=== PATIENT | female | born 1995 | race Caucasian/White ===

== ENCOUNTER 2025-03-28 09:17 | Inpatient (IN) | payer MEDICAID, SELFPAY ==
[2025-03-25 13:45] LABS: Hematocrit 37.5 % (34.9-44.5); Hemoglobin 12.5 g/dL (12.0-15.5); Platelet Count 151 10x3/uL (150-450)
[2025-03-25 14:21] LABS: Syphilis Antibody Index 0.04 S/CO (<1.00 Non-Reactive)
[2025-03-25 14:22] LABS: Hep B Surf Ag Non-Reactive S/CO (NonReactive)
[2025-03-28 10:13] VITALS: BMI 35.5
[2025-03-28] MEDS ORDERED: Tranexamic Acid 1,000 MG/10 ML VIAL IVP PRN (10:13)
[2025-03-28] MEDS ORDERED: Ondansetron PF 4 MG/2 ML Vial IVP PRN ×2 (10:13→10:16)
[2025-03-28] MEDS ORDERED: Methylergonovine 0.2 MG/ML VIAL IM PRN (10:13)
[2025-03-28] MEDS ORDERED: Carboprost 250 MCG/ML AMP IM PRN (10:13)
[2025-03-28] MEDS ORDERED: Bicitra 30 ML UDCUP PO PRN (10:13)
[2025-03-28] MEDS ORDERED: Diphenoxylate HCl/Atropine Tablet PO PRN (10:13)
[2025-03-28] MEDS ORDERED: Acetaminophen 500 MG TAB PO PRN (10:13)
[2025-03-28] MEDS ORDERED: hydrALAZINE 20 MG/ML VIAL SLOW IVP PRN ×2 (10:13→13:14)
[2025-03-28] MEDS ORDERED: Oxytocin 30 units/NS 500 ML 500 ML IV SCH (10:15)
[2025-03-28] MEDS ORDERED: Azithromycin 500 MG in Sodium Chloride 0.9% 250 ML 250 ML IVPB SCH (10:15)
[2025-03-28] MEDS ORDERED: Meperidine HCl/PF 25 MG (1 mL) VIAL SLOW IVP PRN (10:16)
[2025-03-28] MEDS ORDERED: Communication Order-Pharmacy FS SCH (10:30)
[2025-03-28] MEDS: Famotidine/PF 20 mg/2ml Vial SLOW IVP PRN (11:18)
[2025-03-28] MEDS ORDERED: Acetaminophen 325 MG TAB PO PRN (13:14)
[2025-03-28] MEDS ORDERED: Boostrix 0.5 ML (Tdap) VIAL (>/=7 yrs of age) IM ONE (13:14)
[2025-03-28] MEDS ORDERED: Lanolin Ointment 7 GM TUBE TOP PRN (13:14)
[2025-03-28] MEDS: Ondansetron PF 4 MG/2 ML Vial IVP PRN (14:12)
[2025-03-28] MEDS: Ketorolac Tromethamine 30 MG (1 mL) VIAL IVP SCH (14:12)
[2025-03-28] MEDS: Lidocaine 1% PF 5 ML VIAL ONE (15:54)
[2025-03-28] MEDS: Oxytocin 10 UNITS/ML VIAL ONE (15:55)
[2025-03-28] MEDS: Hepatitis B Vaccine 10 MCG/0.5 ML SYR ONE (15:55)
[2025-03-28] MEDS: PHENYLEPHRINE-NS 100 MCG/ML 10 ML SYRINGE ONE (15:55)
[2025-03-28] MEDS: Erythromycin Base 0.5% Oint 1 GM TUBE ONE (15:55)
[2025-03-28] MEDS: Rocuronium Bromide 10 MG/ML (10ML VIAL) ONE (15:55)
[2025-03-28] MEDS: Ketorolac Tromethamine 30 MG (1 mL) VIAL IVP PRN (21:31)
[2025-03-28] MEDS: Ferrous Sulfate 325 MG TAB PO SCH (21:40)
[2025-03-28] MEDS ORDERED: HYDROcodone/Acetaminophen 5/325 mg Tablet PO PRN (22:31)
[2025-03-29] MEDS: diphenhydrAMINE 50 MG/ML VIAL IVP PRN (01:37)
[2025-03-29 06:00] LABS: Hematocrit 29.9 % (34.9-44.5); Hemoglobin 9.7 g/dL (12.0-15.5); Mean Corpuscular Hemoglobin 31.1 pg (27.0-33.0); Mean Corpuscular Volume 95.8 fL (81.6-98.3); Platelet Count 150 10x3/uL (150-450); Red Blood Cell (RBC) Count 3.12 10x6/uL (3.90-5.03); White Blood Cell (WBC) Count 12.56 10x3/uL (3.5-10.5)
[2025-03-29] MEDS: HYDROcodone/Acetaminophen 5/325 mg Tablet PO PRN (08:18)
[2025-03-29] MEDS: Ibuprofen 800 MG TAB PO SCH (16:06)
[2025-03-29 22:50] LABS: Influenza A by NAA Not Detected (NotDetected); Influenza B by NAA Not Detected (NotDetected); SARS-CoV-2 NAA Rapid Test Not Detected (NotDetected)
[2025-03-30] MEDS: Simethicone Chewable 80 MG TAB PO PRN (01:29)
[2025-03-30] MEDS: Milk Of Magnesia 30 ML UDCUP PO SCH (08:18)
[2025-03-30] MEDS: Sodium Chloride 0.65% Nasal 44 ML BOT EA NARE PRN (10:40)
[2025-03-30 12:26] VITALS: BP 104/56; TEMP 99.4
== END 2025-03-30 13:55 | disposition home or self-care (01) | DRG 787 ==
LOC: CSHLD 09:17 → CSHPP 15:25
PROVIDERS: ADMIT Obstetrics & Gynecology; ATTEND Obstetrics & Gynecology
PROC: 10D00Z1 Extraction of Products of Conception, Low, Open Approach (ICD-10-PCS; principal; 2025-03-28)
DX: O34.211 Maternal care for low transverse scar from previous cesarean delivery (principal); D62 Acute posthemorrhagic anemia; Z3A.39 39 weeks gestation of pregnancy; O99.02 Anemia complicating childbirth; O36.63X0 Maternal care for excessive fetal growth, third trimester, not applicable or unspecified; O69.81X0 Labor and delivery complicated by cord around neck, without compression, not applicable or unspecified; Z37.0 Single live birth
CPT/HCPCS: 36415; 51702; 85014; 85018; 85027; 85049; 86780; 86850; 86900; 86901; 87340; 87636; J1200; J1885; J2274; J2405; J2590; J3010; J7120